=== PATIENT | male | born 1940 | race American Indian/Alaskan Native ===

== ENCOUNTER 2021-04-06 17:00 | Emergency (ER) | payer MEDICARE ==
[2021-04-06] MEDS ORDERED: DOPamine/D5W 800 MG/250 ML 800 MG/250 ML BAG IV ONE (17:44)
[2021-04-06] MEDS ORDERED: NORepinephrine/NS 4 MG-250 ML 4 MG/250 ML BAG IV ONE (17:45)
[2021-04-06] MEDS ORDERED: LIDOCAINE DRIP 2,000 MG/500 ML BAG IV ONE ×2 (18:23→18:45)
--- NOTE | 2021-04-06 18:46 | Emergency Department Report ---
HPI - General Chief Complaint: Dyspnea/Respdistress Time Seen by Provider: 04/06/21 17:24 - HPI HPI: Room 4 The patient is an 80-year-old male present with a chief complaint of hypotension and hypoxia. Per EMS the [facility] is a resident at a [facility] and they were called for hypotension and shortness of breath. Upon arrival they state they found the patient hypoxic to 87% on 4 L nasal cannula and hypotensive at 90/50. EMS states staff administered Lasix 40 mg IV prior to their arrival and when they arrived they administered another 40 mg of Lasix IV. The patient was placed on a nonrebreather with improvement of his SPO2 to 93%. The patient reportedly has a "recent" diagnosis of Covid. His vaccination status is unknown. Patient does not respond to questions when asked as he was exhibiting guppy respirations upon arrival and then swiftly lost his pulse. A CODE BLUE was initiated patient was intubated by myself. ACLS protocols were continued with eventual ROSC. The patient arrested 2 more times in the ED, ACLS protocols were continued and there was return of spontaneous circulation. ED Past Medical Hx - Past Medical History Hx Hypertension: Yes Hx CVA: Yes Hx Congestive Heart Failure: Yes Hx Diabetes: Yes Hx Renal Disease: Yes Additional medical history: Atrial fibrillation - Family History Family history: no significant - Social History Smoking Status: Unknown if ever smoked Substance Use Type: None ED Review of Systems ROS: Stated complaint: ALBERT Other details as noted in HPI Comment: Unobtainable due to pts medical conditions Physical Exam - Physical Exam Vital Signs: Vital Signs 04/06/21 18:08 Pulse Rate 123 H O2 Sat by Pulse 100 Oximetry Physical Exam: GENERAL: The patient is well-developed well-nourished male sitting in stretcher exhibiting guppy respirations HEENT: Normocephalic. Atraumatic. Extraocular motions are intact. Patient has moist mucous membranes. NECK: Supple. Trachea midline CHEST/LUNGS: Guppy respiration HEART/CARDIOVASCULAR: Irregularly irregular. There is tachycardia. There is no gallop rub or murmur. ABDOMEN: Abdomen is soft, nontender. Patient has normal bowel sounds. There is no abdominal distention. SKIN: There is no rash. There is no edema. There is no diaphoresis. NEURO: The patient is obtunded MUSCULOSKELETAL: There is no evidence of acute injury. ED Course Vital Signs 04/06/21 18:08 Pulse Rate 123 H O2 Sat by Pulse 100 Oximetry - Central Line Placement Right Femoral Consent Obtained: emergent situation Time Out Performed: No Patient Placed on Monitor/Pulse Ox: Yes Prep: mask, gown, gloves Central Line Prep: Chlorhexidine scrub Local Anesthesia Used: Lidocaine 1% Amount of Anesthesia Used (mls): 5 Ultrasound Used for Placement: No Central Line Lumen Inserted: triple Reason for Insertion: High Alert Medication Bloods Obtained for Lab: Yes Central Line Position: good blood return Dressing Applied: Tegaderm Patient Tolerated Procedure: well, no complications Complications: none - Intubation Time Out Performed: No Laryngoscope: fiberoptic video scope Size: 3 Assist Device Used: fiberoptic device ET Tube Size: 8 Tube Secured Depth (cm): 24 Tube Secured Location: lips Tube Placement Confirmation: visualized tube passing t, equal breath sounds bilat, no breath sounds over epi, confirmation by capnometr Patient Tolerated Procedure: well, no complications Intubation Complications: none ED Medical Decision Making - Lab Data Result diagrams: 04/06/21 18:39 04/06/21 18:46 Laboratory Tests 04/06/21 04/06/21 04/06/21 18:39 18:39 18:39 WBC 20.4 H RBC 4.36 Hgb 13.9 Hct 45.0 MCV 103 H MCH 32 MCHC 31 L RDW 16.1 H Plt Count 160 PT INR APTT D-Dimer VBG pH Sodium 157 H Potassium 4.6 Chloride 115.0 H Carbon Dioxide 18 L Anion Gap 29 BUN 66 H Creatinine 3.3 H Estimated GFR 22 BUN/Creatinine Ratio 20 Glucose 394 H Lactic Acid 14.90 H* Calcium 9.6 Total Bilirubin 2.50 H AST 170 H ALT 209 H Alkaline Phosphatase 148 H Lactate Dehydrogenase Troponin T C-Reactive Protein Total Protein 5.0 L Albumin 2.3 L Albumin/Globulin Ratio 0.9 Triglycerides Cholesterol LDL Cholesterol Direct HDL Cholesterol Cholesterol/HDL Ratio 04/06/21 04/06/21 04/06/21 18:46 18:46 18:50 WBC RBC Hgb Hct MCV MCH MCHC RDW Plt Count PT 18.4 H INR 1.48 H APTT 34.9 D-Dimer 9403.82 H VBG pH 7.009 L* Sodium Potassium Chloride Carbon Dioxide Anion Gap BUN Creatinine Estimated GFR BUN/Creatinine Ratio Glucose 396 H Lactic Acid Calcium Total Bilirubin AST ALT Alkaline Phosphatase Lactate Dehydrogenase 603 H Troponin T 0.087 H C-Reactive Protein 18.50 H Total Protein Albumin Albumin/Globulin Ratio Triglycerides 185 H Cholesterol 139 LDL Cholesterol Direct 81 HDL Cholesterol 25 L Cholesterol/HDL Ratio 5.56 - EKG Data -: EKG Interpreted by Me Rate: tachycardia - EKG Data When compared to previous EKG there are: previous EKG unavailable Interpretation: other (A. fib with RVR) - Radiology Data Radiology results: report reviewed (Chest x-ray), image reviewed (Chest x-ray) interpreted by me: Chest [id number] patchy infiltrates. No pneumothorax. [facility] [address] [place] [address] XRay Report Signed Patient: AMANDA CURRAN MR#: [id number] 95 : 1940 Acct:[id number] Age/Sex: 80 / M ADM Date: 04/06/21 Loc: ED Attending Dr: Ordering Physician: CHHAYA RODARTE MD Date of Service: 04/06/21 Procedure(s): XR chest 1V ap Accession Number(s): [id number] cc: CHHAYA RODARTE MD Fluoro Time In Min utes: CHEST 1 VIEW 04/06/2021 6:44 PM INDICATION / CLINICAL INFORMATION: Respiratory failure, s/p cardiac arrest. Covid+. COMPARISON: None available. FINDINGS: SUPPORT DEVICES: An ET tube terminates 5 cm above the martir. HEART / MEDIASTINUM: No significant abnormality. LUNGS / PLEURA: There are bilateral airspace opacities, right greater than left. No significant pleural effusion. No pneumothorax. ADDITIONAL FINDINGS: No significant additional findings. IMPRESSION: 1. Suspected bilateral pneumonia. 2. Satisfactory positioning of the ET tube. Signer Name: Yon Ambrose MD Signed: 04/06/2021 6:52 PM Workstation Name: [id number] Transcribed By: MN Dictated By: Yon Ambrose MD Electronically Authenticated By: Yon Ambrose MD Signed Date/Time: 04/06/211851 DD/ 50 TD/TT: Print Cancel - Differential Diagnosis COVID pneumonia, sepsis, hyperkalemia, ACS Critical Care Time: Yes Critical care time in (mins) excluding proc time.: 30 Critical care attestation.: If time is entered above; I have spent that time in minutes in the direct care of this critically ill patient, excluding procedure time. ED Disposition Clinical Impression: Cardiac arrest, Respiratory failure, Atrial fibrillation with rapid ventricular response, Pneumonia due to COVID-19 virus Disposition: ADMITTED INPATIENT Is pt being admited?: Yes Condition: Critical Instructions: Bacterial Pneumonia (ED) Referrals: PRIMARY CARE,MD [Primary Care Provider] - 3-5 Days Time of Disposition: 19:39 (Hospitalist notified (Dr. Mckee))
--- NOTE | 2021-04-06 18:56 | XRay Report ---
CHEST 1 VIEW 04/06/2021 6:44 PM INDICATION / CLINICAL INFORMATION: Respiratory failure, s/p cardiac arrest. Covid+. COMPARISON: None available. FINDINGS: SUPPORT DEVICES: An ET tube terminates 5 cm above the martir. HEART / MEDIASTINUM: No significant abnormality. LUNGS / PLEURA: There are bilateral airspace opacities, right greater than left. No significant pleur al effusion. No pneumothorax. ADDITIONAL FINDINGS: No significant additional findings. IMPRESSION: 1. Suspected bilateral pneumonia. 2. Satisfactory positioning of the ET tube. Signer Name: Yon Ambrose MD Signed: 04/06/2021 6:52 PM Workstation Name: [id number]
[2021-04-06 18:58] LABS: Mean Corpuscular HGB Conc 31 % (32-34); Mean Corpuscular Volume 103 fl (84-94); Platelet Count 160 K/mm3 (140-440); Red Blood Count 4.36 M/mm3 (3.65-5.03); Red Cell Distribution Width 16.1 % (13.2-15.2)
[2021-04-06] MEDS ORDERED: NORepinephrine/NS 4 MG-250 ML 4 MG/250 ML BAG IV SCH (19:00)
[2021-04-06 19:07] LABS: INR 1.48 (0.87-1.13); Partial Thromboplastin Time 34.9 Sec. (24.2-36.6)
[2021-04-06 19:07] LABS: Hemoglobin 13.9 gm/dl (11.8-15.2)
[2021-04-06 19:14] LABS: Albumin 2.3 g/dL (3.9-5); Calcium 9.6 mg/dL (8.4-10.2)
[2021-04-06 19:18] LABS: C-Reactive Protein 18.5 mg/dL (0.00-1.30)
[2021-04-06 19:28] LABS: Chol/HDL Ratio 5.56 %
--- NOTE | 2021-04-06 19:39 | History and Physical Report ---
History of Present Illness Chief complaint: He is sick History of present illness: 80 YO Male [facility] Resident with CHF, CVA, Atrial Fib, DM, Vascular Dementia, Cerebral Atherosclerosis, Coronavirus Infection presents to ED for evaluation. Patient is intubated and on ventilatory support at the time my evaluation and is unable to provide history. Patient history taken from EMS staff, ED staff, long-term facility staff, as well as the patient's daughter who was made available by telephone for interview. Patient daughter reports that she was notified that the patient was sick and the patient was transported to [facility] for further care and evaluation of the aforementioned symptoms. As per skilled nurse facility staff the patient was found to have increased confusion, decreased responsiveness, and a pulse oximetry of 87%, as well as hypotension with a blood pressure pressure in the 90s. EMS was notified and upon arrival the patient was found to be in distress and subsequently transported to [facility] for further care and evaluation of the aforementioned symptoms. The patient was seen and evaluated in the emergency department. All lab and imaging studies reviewed. The patient was found to have a pulse oximetry of 84% on nonrebreather mask which is consistent with acute hypoxemic respiratory failure. The patient was intubated and placed on ventilatory support. The patient was found to have pneumonia, sepsis complicated by shock, as well as TRUPTI with ATN. The patient was initiated on sepsis protocol and shortly thereafter the patient experienced cardiac arrest. A CODE BLUE was called and the patient was treated" with ACLS protocol with eventual return of perfusing cardiac rhythm. The patient was found to have multiple organ system dysfunction. No prior admission for review. No medication listed at time of admission reconciliation. Advanced care planning conducted in ED. The patient's daughter, Kassandra Camacho was notified and informed of the patient's status. Patient daughter elects to make patient DNR and initiate comfort measures only. Past History Past Medical History: atrial fib, heart failure, stroke, other (See HPI) Past Surgical History: No surgical history, Other (Reviewed) Social history: single. denies: smoking, alcohol abuse Family history: hypertension Medications and Allergies Allergies Allergy/AdvReac Type Severity Reaction Status Date / Time Unable to Assess Allergy Unverified 04/06/21 19:29 Active Meds: Active Medications Dexamethasone (Dexamethasone 20 Mg/5 Ml Vial) 10 mg IV ONCE ONE Stop: 04/06/21 18:46 Norepinephrine (Levophed Drip 4 Mg/Ns 250 Ml) 4 mg in 250 mls @ 7.5 mls/hr IV TITR DARRIN; Protocol Lidocaine HCl/Dextrose (Xylocaine/D5w 2gm/500ml Drip) 2,000 mg in 500 mls @ 30 mls/hr IV DIRECT ONE; Protocol Stop: 04/07/21 11:24 Azithromycin (Zithromax/Ns) 500 mg in 250 mls @ 250 mls/hr IV ONCE ONE; Protocol Stop: 04/06/21 20:17 Ceftriaxone Sodium (Rocephin/Ns 1 Gm/50 Ml) 1 gm in 50 mls @ 100 mls/hr IV ONCE ONE; Protocol Stop: 04/06/21 19:47 Sodium Chloride (Nacl 0.9% 1000 Ml) 1,000 mls @ 999 mls/hr IV ONCE ONE Stop: 04/06/21 20:28 Sodium Chloride (Nacl 0.9% 1000 Ml) 1,000 mls @ 999 mls/hr IV ONCE ONE Stop: 04/06/21 20:28 Sodium Bicarbonate (Sodium Bicarb 8.4% 50 Meq/50 Ml Syringe) 50 meq IV ONCE ONE Stop: 04/06/21 19:14 Review of Systems ROS unobtainable: due to endotracheal tube, due to mental status Exam - Constitutional Vitals: Temp Pulse Resp BP Pulse Ox 93 H 23 72/22 99 04/06/21 19:15 04/06/21 19:15 04/06/21 19:15 04/06/21 19:15 General appearance: Present: severe distress - EENT Eyes: Present: mydriasis - Neck Neck: Present: supple, normal ROM - Respiratory Respiratory effort: labored Respiratory: bilateral: diminished, rhonchi - Cardiovascular Rhythm: irregularly irregular - Extremities Extremities: pulses symmetrical, No edema Peripheral Pulses: abnormal (Capillary refill greater than 3.5 seconds) - Abdominal General gastrointestinal: Present: soft, non-tender, non-distended, normal bowel sounds Male genitourinary: Present: normal - Integumentary Integumentary: Present: clear, dry, clammy, decreased turgor - Musculoskeletal Musculoskeletal: generalized weakness - Psychiatric Psychiatric: no appropriate mood/affect, no intact judgment & insight, no memory intact - Neurologic Neurologic: no CNII-XII intact, focal deficits, no moves all extremities, no gai t normal HEART Score - HEART Score Troponin: Troponin T 0.087 ng/mL (0.00-0.029) H 04/06/21 18:46 Results - Labs CBC & Chem 7: 04/06/21 18:39 04/06/21 18:46 Labs: Abnormal lab results 04/06/21 04/06/21 04/06/21 Range/Units 18:39 18:39 18:39 WBC 20.4 H (4.5-11.0) K/mm3 MCV 103 H (84-94) fl MCHC 31 L (32-34) % RDW 16.1 H (13.2-15.2) % PT (12.2-14.9) Sec. INR (0.87-1.13) D-Dimer (0-234) ng/mlDDU VBG pH (7.320-7.420) Sodium 157 H (137-145) mmol/L Chloride 115.0 H (98-107) mmol/L Carbon Dioxide 18 L (22-30) mmol/L BUN 66 H (9-20) mg/dL Creatinine 3.3 H (0.8-1.3) mg/dL Glucose 394 H (75-100) mg/dL Lactic Acid 14.90 H* (0.7-2.0) mmol/L Total Bilirubin 2.50 H (0.1-1.2) mg/dL AST 170 H (5-40) units/L ALT 209 H (7-56) units/L Alkaline Phosphatase 148 H (35-129) units/L Lactate Dehydrogenase (91-180) units/L Troponin T (0.00-0.029) ng/mL C-Reactive Protein (0.00-1.30) mg/dL Total Protein 5.0 L (6.3-8.2) g/dL Albumin 2.3 L (3.9-5) g/dL Triglycerides (2-149) mg/dL HDL Cholesterol (40-59) mg/dL 04/06/21 04/06/21 04/06/21 Range/Units 18:46 18:46 18:50 WBC (4.5-11.0) K/mm3 MCV (84-94) fl MCHC (32-34) % RDW (13.2-15.2) % PT 18.4 H (12.2-14.9) Sec. INR 1.48 H (0.87-1.13) D-Dimer 9403.82 H (0-234) ng/mlDDU VBG pH 7.009 L* (7.320-7.420) Sodium (137-145) mmol/L Chloride (98-107) mmol/L Carbon Dioxide (22-30) mmol/L BUN (9-20) mg/dL Creatinine (0.8-1.3) mg/dL Glucose 396 H (75-100) mg/dL Lactic Acid (0.7-2.0) mmol/L Total Bilirubin (0.1-1.2) mg/dL AST (5-40) units/L ALT (7-56) units/L Alkaline Phosphatase (35-129) units/L Lactate Dehydrogenase 603 H (91-180) units/L Troponin T 0.087 H (0.00-0.029) ng/mL C-Reactive Protein 18.50 H (0.00-1.30) mg/dL Total Protein (6.3-8.2) g/dL Albumin (3.9-5) g/dL Triglycerides 185 H (2-149) mg/dL HDL Cholesterol 25 L (40-59) mg/dL Assessment and Plan - Patient Problems (1) Acute hypoxemic respiratory failure Current Visit: Yes Status: Acute Plan to address problem: Patient intubated and placed on ventilatory support. Patient has poor prognosis. Patient daughter elects to make patient DNR and initiate comfort measures only. The high probability of a clinically significant, sudden or life threatening deterioration of the [cardiac, renal, endocrine, neuro, respiratory] system(s) required my full and direct attention, intervention and personal management. The aggregate critical care time was [90] minutes. This time is in addition to time spent performing reported procedures but includes the following: [x] Data Review and interpretation [x] Patient assessment and monitoring of vital signs [x] Documentation [x] Medication orders and management (2) Coronavirus infection Current Visit: Yes Status: Acute Plan to address problem: Patient has poor prognosis. Patient daughter elects to make patient DNR and initiate comfort measures only. (3) Pneumonia Current Visit: Yes Status: Acute Plan to address problem: Patient has poor prognosis. Patient daughter elects to make patient DNR and initiate comfort measures only. (4) Septic shock Current Visit: Yes Status: Acute Plan to address problem: Patient has poor prognosis. Patient daughter elects to make patient DNR and initiate comfort measures only. (5) Acute kidney injury (TRUPTI) with acute tubular necrosis (ATN) Current Visit: Yes Status: Acute Plan to address problem: Patient daughter elects to initiate comfort care measures, supportive care. (6) Toxic metabolic encephalopathy Current Visit: Yes Status: Acute Plan to address problem: Supportive care. Patient daughter elects to initiate comfort care measures. (7) Cardiac arrest Current Visit: Yes Status: Acute Plan to address problem: Patient treated" with ACLS protocol with eventual return of return of perfusing cardiac rhythm. (8) DVT prophylaxis Current Visit: Yes Status: Acute (9) Advance care planning Current Visit: Yes Status: Acute Plan to address problem: Disease education conducted, care plan discussed, diagnoses discussed, prognosis discussed. Patient daughter Kassandra [phone] notified. Patient daughter acknowledges patient poor prognosis. Daughter elects to make patient DNR and initiate comfort measures only. +30 minutes. Patient daughter know ledges understanding and agreement with care plan.
[2021-04-06] MEDS ORDERED: LORazepam 2 MG/ML VIAL IV PRN (19:45)
[2021-04-06] MEDS ORDERED: MORPHINE 2 MG/1 ML INJ IV PRN ×2 (19:45→20:18)
[2021-04-06] MEDS ORDERED: fentaNYL DRIP Premix 2,000 MCG/100 ML BAG IV SCH (20:00)
[2021-04-06] MEDS ORDERED: SODIUM CHLORIDE 0.9% 1000 ML 1,000 ML IV ONE ×2 (20:00→20:45)
[2021-04-06 20:04] LABS: Band Neutrophils # (Manual) 0.2 K/mm3; RBC Morphology Normal; Total Cells Counted 100
[2021-04-06 20:05] LABS: Platelet Estimate Consistent w Auto
[2021-04-06] MEDS ORDERED: ACETAMINOPHEN 325 MG TAB PO PRN (20:18)
[2021-04-06] MEDS ORDERED: HYDROmorphone 1 MG/1 ML INJ IV PRN (20:18)
[2021-04-06 20:29] VITALS: BP 58/18
[2021-04-06] MEDS ORDERED: cefTRIAXone/NS 1 GM/50 ML 1 GM/50 ML BAG IV ONE (20:30)
[2021-04-06] MEDS ORDERED: SODIUM BICARB 8.4% 50 MEQ/50 ML SYRINGE IV ONE (20:30)
[2021-04-06] MEDS ORDERED: dexAMETHasone 20 MG/5 ML VIAL IV ONE (20:30)
[2021-04-06] MEDS ORDERED: AZITHROMYCIN/NS 500 MG/250 ML 500 MG/250 ML BAG IV ONE (20:30)
[2021-04-06] MEDS ORDERED: ATROPINE 0.1% (1 MG/10 ML) CARDIAC SYRINGE ONE (23:50)
[2021-04-06] MEDS ORDERED: LIDOCAINE PF 100 MG/5 ML (CARDIAC SYRINGE) IV ONE (23:50)
[2021-04-06] MEDS ORDERED: ETOMIDATE 20 MG/10 ML INJ IV ONE (23:50)
[2021-04-06] MEDS ORDERED: SUCCINYLCHOLINE CHLORIDE 200 MG/10 ML INJ MDV ONE (23:50)
--- NOTE | 2021-04-07 00:25 | Event Note ---
Date: 04/07/21 Called to pronounce 80 Year old male who had been admission for acute hypoxic respiratory failure, septic shock ,pneumonia, cardiac arrest and who had been made DNR. O/E No response to verbal or tactile stimuli. Pupils were fixed and dilated Chest : No breath sounds CVS: No pulses and no heart sounds Abd: soft Ext: cold and clammy RESEARCH NUTRITIONIST: No reflexes. Patient pronounced at 23:19PM on 04/06/2021. Family already notified by ER staff.
--- NOTE | 2021-04-08 14:20 | Electrocardiograph Report ---
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
--- NOTE | 2021-04-08 15:48 | Death Summary ---
Summary - summary Date of : 04/06/21 - Final diagnosis (1) Acute hypoxemic respiratory failure Note: Final diagnosis: (2) Coronavirus infection Note: Final diagnosis: (3) Pneumonia Note: Final diagnosis: (4) Septic shock Note: Final diagnosis: (5) Acute kidney injury (TRUPTI) with acute tubular necrosis (ATN) Note: Final diagnosis: (6) Toxic metabolic encephalopathy Note: Final diagnosis: (7) Cardiac arrest Note: Final diagnosis: (8) DVT prophylaxis Note: Final diagnosis: (9) Advance care planning Note: Final diagnosis:
== END 2021-04-06 23:50 ==
LOC: ED 17:00 → UNDOADMIN 20:18 → CC1 20:18 → ED 04-07 03:45
DX: U07.1 COVID-19 (principal); J12.82 Pneumonia due to coronavirus disease 2019; I46.9 Cardiac arrest, cause unspecified; N17.0 Acute kidney failure with tubular necrosis; J96.90 Respiratory failure, unspecified, unspecified whether with hypoxia or hypercapnia; I48.91 Unspecified atrial fibrillation; I11.0 Hypertensive heart disease with heart failure; I50.9 Heart failure, unspecified; E11.9 Type 2 diabetes mellitus without complications; Z79.899 Other long term (current) drug therapy
CPT/HCPCS: 31500; 36415; 36556; 71045; 80053; 80061; 82140; 82728; 82805; 82947; 83615; 84145; 84484; 85007; 85025; 85379; 85610; 85730; 86140; 87040; 93005; 99291; J0330; J0461; J1265; J2001; 94002